=== PATIENT | female | born 1995 | race Caucasian/White ===

== ENCOUNTER 2017-10-26 16:47 | Emergency (ER) | payer SELFPAY ==
[~2017-10-26] VITALS: Ht 185.4 cm; Wt 72.5 kg
[2017-10-26 16:53] VITALS: BP 128/82; PULSE 112; RESP 18; TEMP 97.5; O2SAT 96
[2017-10-26] MEDS ORDERED: BACT800T5 PO (19:11)
[2017-10-26] MEDS ORDERED: DOXY100C PO (19:11)
[2017-10-26] MEDS ORDERED: NORC5TAB PO (19:11)
[2017-10-26] MEDS ORDERED: DOXYCYCLINE HYCLATE 100 MG CAP PO ONE (19:15)
[2017-10-26] MEDS ORDERED: SULFAMETHOXAZOLE-TRIMETHOPRIM DS 800-160 MG TAB PO ONE (19:15)
[2017-10-26] MEDS ORDERED: LIDOCAINE HCL 1% 50 ML VIAL INFIL ONE (19:15)
--- NOTE | 2017-10-26 19:16 | PD ---
HPI Chief Complaint: Lump, Cyst, Hernia Time Seen by Provider: 19:06 Travel History International Travel<30 days: No Contact w/Intl Traveler<30days: No Traveled to known affect area: No History of Present Illness HPI 21-year-old white female presents emergency Department with a one-week history of a developing abscess to her right buttocks over the past week. A few days earlier she had received a tattoo in the same area. She denies any history of MRSA. No IV drug abuse. Denies fever chills. Pain is moderate. No alleviating factors. No exacerbating factors. PFSH Past Medical History Medical History: Denies Significant Hx Tetanus Vaccination: < 5 Years ?: Not Past Surgical History Surgical History: No Previous Surgery Social History Alcohol Use: Yes Tobacco Use: Yes Substance Use: No Allergies-Medications (Allergen,Severity, Reaction): Coded Allergies: No Known Allergies (Unverified , 10/26/17) Reported Meds & Prescriptions Reported Meds & Active Scripts Active Agra (Hydrocodone-Acetaminophen) 5 Mg-325 Mg Tab 1 Tab PO Q6H PRN 3 Days Doxycycline Hyclate 100 Mg Cap 100 Mg PO BID Bactrim DS (Sulfamethoxazole-Trimethoprim) 800-160 Mg Tab 1 Tab PO BID Review of Systems Except as stated in HPI: all other systems reviewed are Neg Physical Exam Narrative GENERAL: Well-developed, well-nourished in no acute distress. Nontoxic appearing. HEAD: Normocephalic, atraumatic. EYES: Pupils equal round and reactive. Extraocular motions intact. No scleral icterus. No injection or drainage. ENT: TMs clear without erythema. The external auditory canals clear. Nose: clear . Posterior pharynx is pink and moist. No tonsillar edema or exudate. Uvula midline. Airway patent. NECK: Trachea midline.Supple, nontender, moves head freely. No central bony tenderness or spasm. CARDIOVASCULAR: Regular rate and rhythm without murmurs, gallops, or rubs. RESPIRATORY: Clear to auscultation. Breath sounds equal bilaterally. No wheezes , rales, or rhonchi. GASTROINTESTINAL: Abdomen soft, non-tender, nondistended. No hepato-splenomegaly , or palpable masses. No guarding. EXTREMITIES: No clubbing, cyanosis, or edema. No joint tenderness, effusion, or edema noted. Skin: Patient has a 4 x 4 area of erythema, warmth with central fluctuance. No pointing. Tender to touch. Data Data Last Documented VS Vital Signs Date Time Temp Pulse Resp B/P (MAP) Pulse Ox O2 Delivery O2 Flow Rate FiO2 10/26/17 16:53 97.5 112 18 128/82 (97) 96 Orders Orders Sulfamet-Trimeth Ds 800-160 Mg (Bactrim (10/26/17 19:15) Doxycycline (Vibramycin) (10/26/17 19:15) Lidocaine 1% Inj (50 Ml) (Xylocaine 1% I (10/26/17 19:15) MDM Medical Decision Making Medical Screen Exam Complete: Yes Emergency Medical Condition: Yes Medical Record Reviewed: Yes Differential Diagnosis MDM: High Differential diagnoses: Abscess, folliculitis, cellulitis, lymphangitis, abrasion, contact dermatitis Narrative Course An incision and drainage has been performed Patient given Bactrim DS, doxycycline. Procedures Procedure Narrative I&D abscess: After the risks and benefits were discussed the following procedure was performed. The skin is prepped and draped in the usual sterile fashion using Betadine. The abscess is anesthetized with 1% lidocaine. After adequate anesthesia, an 10 blade scalpel is used to make a 3 centimeter central incision. Perulant material is expressed. Loculations are broken up using curved Camille forceps. The wound is cleansed deeply using dilute Betadine and peroxide on Q-tips. The wound is packed open using iodoform gauze. A clean dressing is applied. The patient tolerated the procedure well. There was no complications. Follow-up instructions were given to the patient. Diagnosis Primary Impression: right buttock abscess Patient Instructions: Narcotic given in the ED, General Instructions Additional Instructions: Rest. Elevation. keep clean and dry. remove the packing in two days. Daily wound care with soap, water and Neosporin. Three Advil every 6 hours. Doxycycline, Septra DS, and Lortab. Follow-up with a primary care doctor in one week. Return to the ER for any problems. Med/Other Pt SpecificInfo: Prescription(s) given, Wound Care Scripts Hydrocodone-Acetaminophen (Agra) 5 Mg-325 Mg Tab 1 TAB PO Q6H Y for PAIN for 3 Days, #12 TAB 0 Refills Prov: Benjy Aguirre MD 10/26/17 Doxycycline Hyclate (Doxycycline Hyclate) 100 Mg Cap 100 MG PO BID for Infection, #20 CAP 0 Refills Prov: Benjy Aguirre MD 10/26/17 Sulfamethoxazole-Trimethoprim (Bactrim DS) 800-160 Mg Tab 1 TAB PO BID for Infection, #20 TAB 0 Refills Prov: Benjy Aguirre MD 10/26/17 Disposition: 01 DISCHARGE HOME Condition: Stable Shashi Topete Oct 26, 2017 19:16
[2017-10-26] MEDS ORDERED: LIDOCAINE HCL 1% 20 ML VIAL ONE (19:22)
[2017-10-26 19:36] VITALS: BP 135/89; PULSE 89; RESP 20; O2SAT 99
[2017-10-26 19:57] VITALS: BP 133/68
== END 2017-10-26 19:59 | disposition home or self-care (01) ==
LOC: NEPD 16:47
DX: L02.31 Cutaneous abscess of buttock (principal); Z72.0 Tobacco use
CPT/HCPCS: 10061